=== PATIENT | male | born 1960 | race Caucasian/White ===

== ENCOUNTER 2021-10-23 11:27 | Emergency (ER) | payer BC, SELFPAY ==
--- NOTE | ~2021-10-23 | CT_ITS ---
EXAMINATION: CT brain wo con DATE: 10/23/2021 12:40 INDICATION: Syncope TECHNIQUE: Computed tomography (CT) of the head was performed without intravenous contrast. Sagittal and coronal reconstructions were performed. The mA was adjusted according to patient size. Iterative reconstruction technique was employed. The dose-length product was 605.33 mGy-cm. COMPARISON: None FINDINGS: No fracture. No acute intracranial hemorrhage, acute infarction or abnormal extra axial fluid collect ion. Ventricles are normal and symmetric. No mass/mass effect. Mild mucoperiosteal thickening the franco ateral ethmoid sinuses. The orbits and mastoid air cells are normal. IMPRESSION: 1. Normal brain. No acute intracranial process. Reviewed, dictated and finalized at location A.
[2021-10-23 11:30] VITALS: BP 150/73; PULSE 96; RESP 14; TEMP 36.2; O2SAT 97
[2021-10-23 11:46] VITALS: PULSE 89
--- NOTE | 2021-10-23 11:47 | ECG_ITS ---
Measurements Intervals [place] Rate: 81 P: 24 IN: 141 QRS: 8 QRSD: 89 T: 22 QT: 340 QTc: 397 Interpretive Statements SINUS RHYTHM NO PREVIOUS ECG AVAILABLE FOR COMPARISON Electronically Signed On 10-23-2021 11:59:55 CDT by Terrance Michaud M.D.
[2021-10-23 11:55] LABS: Basophils Percent Auto 0.5 % (0.2-1.2); Eosinophils Absolute Auto 0.1 K/mm3 (0-0.3); Eosinophils Percent Auto 1.7 % (0-4.4); Hematocrit 44.1 % (42.0-52.0); Immature Granulocyte Absolute 0.02 K/mm3 (0.00-0.031); Immature Granulocyte Percent A 0.3 % (0-0.5); Lymphocytes Absolute Auto 1.49 K/mm3 (0.9-3.2); Lymphocytes Percent Auto 24.9 % (18.3-44.2); Mean Corpuscular Hemoglobin 30.9 pg (26-34); Mean Corpuscular Volume 90.9 fl (80-100); Mean Platelet Volume 8.9 fl (7.4-10.4); Monocytes Absolute Auto 0.5 K/mm3 (0.1-0.6); Monocytes Percent Auto 8.7 % (2.6-8.5); Neutrophils Absolute Auto 3.8 K/mm3 (1.3-6.7); Neutrophils Percent Auto 63.9 % (45.5-73.1); Platelet Count Result 235 k/mm3 (150-375); Red Blood Count 4.85 M/mm3 (4.6-6.20); Red Cell Distribution Width 12.3 % (11.5-14.5)
[2021-10-23 12:06] LABS: Alanine Aminotransferase 34 U/L (6-50); Albumin Level 4.4 g/dL (3.5-5.1); Alkaline Phosphatase 96 U/L (38-126); Anion Gap 12 mmol/L (8-16); Aspartate Amino Transferase 41 U/L (17-59); Bilirubin,Total 0.7 mg/dL (0.2-1.3); Blood Urea Nitrogen 18 mg/dL (9-20); Calcium 8.8 mg/dL (8.4-10.2); Carbon Dioxide 25 mmol/L (22-30); Chloride 102 mmol/L (98-107); Estimated CRCL calculation 78 ml/min; Estimated Glomerular Filt Rate > 60; Glucose 125 mg/dL (65-110); Potassium 4.4 mmol/L (3.4-5.0); Sodium 139 mmol/L (137-145)
[2021-10-23 12:47] VITALS: BP 157/80; PULSE 68; RESP 19; O2SAT 98
--- NOTE | 2021-10-23 13:16 | ED.SYNCOPE ---
HPI - Syncope General Chief Complaint: Syncope Stated Complaint: Syncope Time Seen by Provider: 10/23/21 12:16 Source: patient and family Mode of arrival: ambulatory Limitations: no limitations History of Present Illness HPI narrative: 60-year-old with a history of hypertension, hypercholesterolemia was brought in by his with a complaint of syncopal episode happened 2 days ago. Patient states that he was all night The morning he was working in his yard felt lightheaded and dizzy and his reports that he was pale however patient denies losing consciousness no bladder or bowel incontinence. He denies any chest pain short, shortness of breath or palpitation prior to the event. He states he called his primary doctor who recommended to go to the ER for evaluation ,presently has no complaints. Related Data Allergies Allergy/AdvReac Type Severity Reaction Status Date / Time No Known Allergies Allergy Unverified 10/23/21 11:42 Review of Systems Review of Systems: All systems reviewed & are unremarkable except as noted in HPI and below Constitutional: Constitutional: Reports no additional constitutional complaints Eyes: Eyes: Reports no additional eye complaints ENT: Reports system reviewed and no additional complaints, except as documented Cardiovascular: Cardiovascular: Reports no additional cardiovascular complaints Respiratory: Respiratory: Reports no additional respiratory complaints Gastrointestinal: Gastrointestinal: Reports no additional gastrointestinal complaints Neurologic: Reports system reviewed and no additional complaints, except as documented Endocrine: Endocrine: Reports no additional endocrine complaints Exam Narrative: GENERAL: Well-appearing, well-nourished, and in no acute distress. HEAD: Normocephalic, atraumatic. EYES: PERRLA and EOMI. NECK: Supple. CHEST: Clear to auscultation. No respiratory distress. HEART: Regular rate and rhythm. No murmur heard. Normal peripheral pulses. ABDOMEN: Soft, nontender, nondistended, normal active bowel sounds. EXTREMITIES: Normal range of motion. No edema. SKIN: Warm, dry, no rash. NEURO: No focal deficits. Alert and oriented x3. PSYCH: Normal mood and affect. Course Course Emergency Course: Patient presently not having any complaints his EKG is unremarkable he is not orthostatic. Work-up was unremarkable. Recommended him to follow-up with his primary doctor. Vital Signs Vital signs: Vital Signs Temperature 36.2 C L 10/23/21 11:30 Pulse Rate 96 10/23/21 11:30 Respiratory Rate 14 10/23/21 11:30 Blood Pressure 150/73 H 10/23/21 11:30 Pulse Oximetry 97 10/23/21 11:30 Oxygen Delivery Room Air 10/23/21 11:30 Temperature 36.2 C L 10/23/21 11:30 Pulse Rate 68 10/23/21 12:47 Respiratory Rate 19 10/23/21 12:47 Blood Pressure 157/80 H 10/23/21 12:47 Pulse Oximetry 98 10/23/21 12:47 Oxygen Delivery Room Air 10/23/21 11:30 MDM - Syncope MDM Narrative Medical decision making narrative: 60-year-old with a history of hypertension, hyperlipidemia had a near syncopal episode 2 days ago on at present his physical exam is unremarkable we will do cardiac work-up and CT of the head. He is not orthostatic. Most likely could be vasovagal episode Differential Diagnosis Differential diagnosis: Likely syncope due to orthostatic hypotension, vasovagal syncope and dehydration Medical Records Attestation: I reviewed the patient's medical records. Lab Data Attestation: I reviewed the patient's lab results. Result diagrams: 10/23/21 11:49 10/23/21 11:49 Labs: Lab Results 10/23/21 10/23/21 Range/Units 11:49 11:49 WBC 6.0 (4.5-10.0) K/mm3 RBC 4.85 (4.6-6.20) M/mm3 Hgb 15.0 (14.0-18.0) g/dL Hct 44.1 (42.0-52.0) % MCV 90.9 (80-100) fl MCH 30.9 (26-34) pg MCHC 34.0 (32-36) g/dl RDW 12.3 (11.5-14.5) % Plt Count 235 (150-375) k/mm3 MPV 8.9 (7.4-10.4)
[2021-10-23 13:50] VITALS: BP 144/83; PULSE 67; RESP 22; O2SAT 97
== END 2021-10-23 13:51 | disposition home or self-care (01) ==
PROVIDERS: Emergency Medicine; Emergency Provider Family Medicine; PCP Internal Medicine
DX: R55 Syncope and collapse (principal); I10 Essential (primary) hypertension; E78.00 Pure hypercholesterolemia, unspecified
CPT/HCPCS: 36415; 70450; 80053; 85025; 93005; 99284

== ENCOUNTER 2021-12-16 20:35 | Emergency (ER) | payer BC, SELFPAY ==
--- NOTE | ~2021-12-16 | CT_ITS ---
EXAMINATION: CT brain wo con DATE: 12/16/2021 23:38 INDICATION: Left ear pain. TECHNIQUE: Computed tomography (CT) of the head was performed without intravenous contrast. The mA wa s adjusted according to patient size. Iterative reconstruction technique was employed. The dose-lengt h product was 605.33 mGy-cm. COMPARISON: Head CT 10/23/2021 FINDINGS: There is no intracranial hemorrhage, acute infarction, or abnormal intracranial mass lesion . There are scattered areas of low attenuation in the cerebral white matter, which is within normal l imits for the patient's age. The ventricles are normal in size. The orbits are normal. There is mild mucosal thickening in the paranasal sinuses. The mastoid air cells are normal. IMPRESSION: 1. Normal aging brain. Reviewed, dictated and finalized at location A. IMPRESSION: 1. Normal aging brain.
[2021-12-16 20:36] VITALS: BP 171/85; PULSE 91; RESP 16; TEMP 37; O2SAT 99
[2021-12-16 22:13] LABS: Basophils Percent Auto 0.5 % (0.2-1.2); Eosinophils Absolute Auto 0.2 K/mm3 (0-0.3); Eosinophils Percent Auto 2.2 % (0-4.4); Hemoglobin 15.8 g/dL (14.0-18.0); Immature Granulocyte Absolute 0.02 K/mm3 (0.00-0.031); Immature Granulocyte Percent A 0.3 % (0-0.5); Lymphocytes Absolute Auto 2.05 K/mm3 (0.9-3.2); Mean Corpuscular HGB Conc 33.6 g/dl (32-36); Mean Corpuscular Hemoglobin 31.5 pg (26-34); Mean Corpuscular Volume 93.6 fl (80-100); Mean Platelet Volume 8.7 fl (7.4-10.4); Monocytes Absolute Auto 0.8 K/mm3 (0.1-0.6); Monocytes Percent Auto 9.9 % (2.6-8.5); Neutrophils Absolute Auto 4.8 K/mm3 (1.3-6.7); Neutrophils Percent Auto 61.1 % (45.5-73.1); Platelet Count Result 251 k/mm3 (150-375); Red Blood Count 5.02 M/mm3 (4.6-6.20); Red Cell Distribution Width 12.5 % (11.5-14.5); White Blood Count 7.9 K/mm3 (4.5-10.0)
[2021-12-16 22:23] LABS: Prothrombin Time 12.4 Seconds (11.1-14.7)
[2021-12-16 22:24] LABS: Partial Thromboplastin Time 32.1 SECONDS (22.3-36.8)
[2021-12-16 22:25] LABS: Alanine Aminotransferase 33 U/L (6-50); Albumin Level 4.8 g/dL (3.5-5.1); Alkaline Phosphatase 90 U/L (38-126); Anion Gap 10 mmol/L (8-16); Aspartate Amino Transferase 34 U/L (17-59); Bilirubin,Total 0.7 mg/dL (0.2-1.3); Blood Urea Nitrogen 21 mg/dL (9-20); Calcium 9.5 mg/dL (8.4-10.2); Carbon Dioxide 32 mmol/L (22-30); Chloride 100 mmol/L (98-107); Estimated CRCL calculation 62 ml/min; Estimated Glomerular Filt Rate > 60; Glucose 110 mg/dL (65-110); Sodium 142 mmol/L (137-145)
[2021-12-16 22:49] LABS: Erythrocyte Sedimentation Rate 6 mm/hr (0-20)
--- NOTE | 2021-12-16 23:39 | ED.EAR ---
HPI - Ear Problem General Chief complaint: Ear Stated complaint: L ear pain Time Seen by Provider: 12/16/21 20:46 Source: patient Mode of arrival: ambulatory Limitations: no limitations History of Present Illness HPI Narrative: This is a 61 year old male that presents to the ER for left ear pain. Ongoing for the last 4 hours. Associated with some paresthesias just anterior to the ear. No other focal numbness or weakness. Denies fevers, rash, abnormal drainage, or swelling. Related Data Allergies Allergy/AdvReac Type Severity Reaction Status Date / Time No Known Allergies Allergy Verified 12/16/21 20:36 Review of Systems Review of Systems: CONSTITUTIONAL: Denies fever ENT: Reports otalgia SKIN: Denies rash NEUROLOGIC: Denies headache, numbness, or weakness. All systems reviewed & are unremarkable except as noted in HPI and below PMFSH Past Medical History Medical History (Updated 12/17/21 @ 00:57 by Carmen Farias PA-C) History of hyperlipidemia History of hypertension Social History Social History (Updated 12/16/21 @ 23:40 by Carmen Farias PA-C) Smoking status: Never smoker Exam Narrative: GENERAL: Well-appearing, well-nourished, and in no acute distress. HEAD: Normocephalic, atraumatic. EYES: PERRLA and EOMI. ENT: Nares clear, no rhinorrhea or epistaxis. Mucous membranes moist. Oropharynx without tonsillar hypertrophy exudate or other lesions. Bilateral TMs pearly ho non-bulging. Bilateral external auditory canals are normal NECK: Supple. No adenopathy or masses. CHEST: Clear to auscultation. No respiratory distress. No wheezes rales or rhonchi HEART: Regular rate and rhythm. No murmur heard. Normal peripheral pulses. EXTREMITIES: Normal range of motion. No edema. SKIN: Warm, dry, no rash. NEURO: No focal deficits. Alert and oriented x3. Cranial nerves II through XII grossly intact. Normal gait PSYCH: Normal mood and affect Course Vital Signs Vital signs: Vital Signs Temperature 98.6 F 12/16/21 20:36 Pulse Rate 91 12/16/21 20:36 Respiratory Rate 16 12/16/21 20:36 Blood Pressure 171/85 H 12/16/21 20:36 Pulse Oximetry 99 12/16/21 20:36 Temperature 98.6 F 12/16/21 20:36 Pulse Rate 91 12/16/21 20:36 Respiratory Rate 16 12/16/21 20:36 Blood Pressure 171/85 H 12/16/21 20:36 Pulse Oximetry 99 12/16/21 20:36 Medical Decision Making MDM Narrative Medical decision making narrative: Patient presents to the ER for left sided ear pain ongoing over the last couple of hours. Associated with some paresthesias just anterior to the ear. Patient is afebrile and nontoxic appearing. He is neurologically intact. External auditory canal and TM is normal on the affected side. There is no notable rash to the area. CBC is without leukocytosis. ESR is not elevated. CT scan of the brain is without acute findings. Patient reports improvement with Tylenol. Patient does report he has history of shingles in this distribution. I spoke with patient about sending an antiviral to the pharmacy and that he should start it if he develops a rash. He was also instructed to have close follow-up with his primary doctor. He was given warnings to return to the ER Vital Signs Vital Signs: Vital Signs Temperature 98.6 F 12/16/21 20:36 Pulse Rate 91 12/16/21 20:36 Respiratory Rate 16 12/16/21 20:36 Blood Pressure 171/85 H 12/16/21 20:36 Pulse Oximetry 99 12/16/21 20:36 Temperature 98.6 F 12/16/21 20:36 Pulse Rate 91 12/16/21 20:36 Respiratory Rate 16 12/16/21 20:36 Blood Pressure 171/85 H 12/16/21 20:36 Pulse Oximetry 99 12/16/21 20:36 Lab Data Lab results reviewed: Yes I reviewed the patient's lab results. Result diagrams: 12/16/21 22:04 12/16/21 22:04 Labs: Lab Results 12/16/21 12/16/21 12/16/21 Range/Units 22:04 22:04 22:04 WBC 7.9 (4.5-10.0) K/mm3 RBC 5.02 (4.6-6.20) M/mm3 Hgb 15.8 (14.
[2021-12-17] MEDS: ACETAMINOPHEN 500 MG TABLET 1000 MG PO (00:13)
== END 2021-12-17 01:12 | disposition home or self-care (01) ==
PROVIDERS: Physician Assistant; Emergency Provider Emergency Medicine; PCP Internal Medicine
DX: H92.02 Otalgia, left ear (principal); E78.5 Hyperlipidemia, unspecified; I10 Essential (primary) hypertension
CPT/HCPCS: 36415; 70450; 80053; 85025; 85610; 85652; 85730; 99284; A9270

== ENCOUNTER 2024-05-17 09:21 | Outpatient (CLI) | payer MEDICARE, OTHER, SELFPAY ==
--- NOTE | ~2024-05-17 | US_ITS ---
EXAMINATION: US aorta [employer] DATE: 05/17/2024 10:43 INDICATION: Abdominal aortic aneurysm screening with risk factors of nicotine dependence, hypertensio n and hypercholesterolemia TECHNIQUE: Grayscale, color Doppler, and pulsed Doppler images of the aorta and common iliac arteries were obtained. COMPARISON: None. FINDINGS: The proximal aorta measures 2.2 cm maximal AP diameter.. The mid aorta measures 2.9 cm. The distal ao rta measures 1.9 cm. The right common iliac artery measures 1.2 cm. The left common iliac artery janneth ures 1.2 cm. IMPRESSION: 1. Normal caliber abdominal aorta. Reviewed, dictated and finalized at location B. HOUSE HAND[employer]ER
--- OUTSIDE RECORDS SUMMARY | 2024-05-17 10:03 | XMS_ITS | Clinical Summary ---
Author Organization [facility] Address [address] [place] [address] Care Team Providers Care Preload Supervisor Name Role Phone Lucio Schilling MD Primary Care Provider [phone] Allergies No known active allergies Medications naproxen sodium (ANAPROX) 220 MG tablet Take 220 mg by mouth 2 (two) times daily with meals. Active LISINOPRIL 20 MG tabletIndications:E ssential hypertension TAKE 1 TABLET(20 MG) BY MOUTH DAILY 90 tablet 1 1 Active ATORVASTATIN 10 MG tabletIndications:M ixed hyperlipidemia TAKE 1 TABLET(10 MG) BY MOUTH EVERY NIGHT AT BEDTIME 90 tablet 1 1 Active predniSONE 10 mg tablet Take 1 tablet by mouth daily. 1 Active Multiple Vitamins-Minerals (CENTRUM SILVER 50+MEN OR) Centrum Silver Active fish oil (OMEGA-3 FATTY ACID) 1000 MG Cap capsule [place] 3 Active Turmeric 1053 MG Tab turmeric Active Active Problems Problem Noted Date Diagnosed Date Hyperglycemia 08/12/2017 Hyperlipidemia 08/12/2017 Left hip pain 08/12/2017 Left inguinal pain 08/12/2017 Hypertension 07/08/2017 Polyarthralgia 07/08/2017 Resolved Problems Problem Noted Date Diagnosed Date Resolved Date Screening PSA (prostate specific antigen) 07/08/2017 12/03/2019 Screening for endocrine, nut ritional, metabolic and immunity disorder 07/08/2017 12/03/19 20 Immunizations Name Administration Dates Next Due Afluria 36 MONTHS+ (Prefille d Syringe IIV4) 02/03/2019 Fluzone 6 Months+ Quad (0.5 mL Prefilled Syringe) 12/23/2019 Influenza (Generic) 12/31/2017, 7,12/05/2015, 015,11/16/2013 Influenza Adult (Generic) 02/03/2019,04/12/2013 Family History Medical History Relation Comments Cancer Father Hypertension Father Breast Cancer Mother Relation Status Comments Father Mother Social History Tobacco Use Types Packs/Day Years Used Date Smoking Tobacco: Never Smokeless Tobacco: Never Tobacco Cessation:Counseling Given: Not Answered Alcohol Use Standard Drinks/Week Comments Yes 1.7 (1 standard drink = 0.6 oz p ure alcohol) a day AUDIT-C Answer Date Recorded Frequency of Alcohol Consumption 4 or more times a week 05/19/2018 Average Number of Drinks 1 or 2 019 Frequency of Binge Drinking Not on file 04/25 PHQ-2 Answer Date Recorded PHQ-2 Score - If the patient scores above 3, please move on to questions 3-9 2 12/23/2019 Sex and Gender Information Value Date Recorded Sex Assigned at Not on file Legal Sex Male 8:16 PM CDT Gender Identity Not on file Sexual Orientation Not on file Last Filed Vital Signs Vital Sign Reading Time Taken Comments Blood Pressure 132/77 05/21/2022 12:00 PM PROGRAM LEAD Pulse 69 05/21/2022 12:00 PM PROGRAM LEAD Temperature 36.4 C (97.6 F) 05/21/2022 11:37 AM PROGRAM LEAD Respiratory Rate 12 05/21/2022 12:00 PM PROGRAM LEAD Oxygen Saturation 99% 05/21/2022 12:00 PM PROGRAM LEAD Inhaled Oxygen Concentration - - Weight 86.2 kg (190 lb) 05/16/2022 8:19 AM PROGRAM LEAD Height 167.6 cm (5' 6 ) 05/16/2022 8:19 AM PROGRAM LEAD Body Mass Index 30.67 05/16/2022 8:19 AM PROGRAM LEAD Plan of Treatment Health Maintenance Due Date Last Done Comments DTaP, Tdap and Td Vaccines (1 - Tdap) 1977 Zoster Vaccines (1 of 2) 2008 COVID-19 Vaccine (4 - season) 2023 10/18/2021, 02/09/2021, 05/26/2020 Pneumococcal Vaccine: 65+ Years (1 of 1 - PCV) 12/10/2023 Influenza Adult (#1) 2023 02/09/2021, 12/23/2019, 02/03/2019, Additional history exists Colorectal Cancer Screening Colonoscopy (10 Years) 05/21/2032 05/21/2022, 05/21/2022 RSV Immunization or 60+ Years (1 - 1-dose 75+ series) 2033 Hepatitis C Completed 11/17/2018 Meningococcal B Vaccine Aged Out No l onger eligible based on patient's age to complete this topic Meningococcal Vaccine Aged Out No manuela faviola eligible based on patient's age to complete this topic Pneumococcal Vaccine: Pediatrics (0 to 5 Years) and At-Risk Patients (6 to 64 Years) Aged Out No longer eligible based on patient's age to complete this topic RSV Immunizations Under 20 Months Aged Out No longer eligible based on patient's age to complete this topic Procedures Procedure Name Priority Date/Time Associated Diagnosis Comments COLONOSCOPY Routine 05/21/2022 9:29 AM PROGRAM LEAD HEPATITIS C ANTIBODY Routine 11/17/2018 11:00 AM CDT Need for hepatitis C screening test from Last 3 Months or Most Recently Relevant to Health Maintenance Results * HEPATITIS C ANTIBODY (11/17/2018 11:00 AM CDT) HEPATITIS C AB NON-REACTI VE NON-REACTI VE 11/17/2018 11:27 PM CDT [facility] 11/17/2018 11:0 0 AM CDT us [facility] Final Resul t [facility] [address] [place] [address], [place] [phone] from Last 3 Months or Most Recently Relevant to Health Maintenance Insurance [facility] Care Teams Preload Supervisor Relationship Specialty Start Date End Date Lucio Schilling MD [address] [address] PCP - General INTERNAL MEDICINE 05/21/22
--- OUTSIDE RECORDS SUMMARY | 2024-05-17 10:03 | XMS_ITS | CONTINUITY OF CARE DOCUMENT ---
Author Name panchito flanagan Address Unknown Organization [facility] Address [address] [place] [address] Phone [phone] Care Team Providers Care V Belt Skiver Name Role Phone Anne WOODSON, Karla Mccabe Unavailable WOODROW WOODSON, MADELYN De Souza Unavailable [phone] INSURANCE PROVIDERS Payer name Policy type / Coverage type Lucía red libertarian ID [facility] [id number]
== END 2024-05-17 09:22 | disposition home or self-care (01) ==
PROVIDERS: PCP Nurse Practitioner Family; Visit Provider Nurse Practitioner Family
DX: Z87.891 Personal history of nicotine dependence (principal)
CPT/HCPCS: 76706